=== PATIENT | female | born 1985 | race Caucasian/White ===

== ENCOUNTER 2017-02-15 21:19 | Emergency (ER) | payer BC ==
[~2017-02-15] VITALS: Ht 175.3 cm; Wt 118.2 kg
[~2017-02-15 21:19] MED LIST: ALEVE220 MG PO; CARAFATE PO; CEPHALEXIN500 M1 PO; FLOMAX 0.40.4 MG/CAP PO; KETOROLAC TROME10 MG PO; NORCO 325 MG-51 TAB PO; ONDANSETRON HYDR4 M1 PO; OXYCODONE HCL E10 MG PO; OXYCODONE HCL10 M1 PO; PERCOCET 325 MG1 TA2 PO; PHENERGAN 25 TA25 MG PO; PRILOSEC 20MG20 MG PO; SILVADENE(20 GM/1 TU TP; SULFAMETH/TRIME1 TA2 PO; ZANAFLEX CAPSULE2 MG PO; ZOFRAN ODT8 M1 PO
[2017-02-15 23:19] VITALS: BP 124/86
== END 2017-02-15 23:19 | disposition home or self-care (01) ==
LOC: ED 21:19
DX: O20.9 Hemorrhage in early pregnancy, unspecified (principal); Z3A.01 Less than 8 weeks gestation of pregnancy; Z79.891 Long term (current) use of opiate analgesic

== ENCOUNTER 2018-07-28 11:05 | Emergency (ER) | payer MEDICAID ==
[~2018-07-28] VITALS: Ht 172.7 cm; Wt 118.2 kg
[2018-07-28] MEDS ORDERED: JUNEL FE 1/20 21 TAB PO (11:14)
[2018-07-28] MEDS ORDERED: ESCITALOPRAM10 MG PO (11:14)
[2018-07-28] MEDS ORDERED: OXYCODONE HCL20 M1 PO (11:14)
[2018-07-28 12:51] VITALS: BP 152/97
== END 2018-07-28 12:47 | disposition home or self-care (01) ==
LOC: ED 11:05
DX: M79.672 Pain in left foot (principal); Z79.899 Other long term (current) drug therapy; Z79.891 Long term (current) use of opiate analgesic; M54.9 Dorsalgia, unspecified; G89.29 Other chronic pain; Z87.891 Personal history of nicotine dependence

== ENCOUNTER 2018-09-11 11:55 | Emergency (ER) | payer MEDICAID ==
[~2018-09-11] VITALS: Ht 172.7 cm; Wt 118.2 kg
[~2018-09-11 11:55] MED LIST changes: +ESCITALOPRAM10 MG PO; +JUNEL FE 1/20 21 TAB PO; +OXYCODONE HCL20 M1 PO
[2018-09-11] MEDS ORDERED: JUNEL FE 1/20 21 TAB PO (12:27)
[2018-09-11 13:34] VITALS: BP 142/85
== END 2018-09-11 13:39 | disposition home or self-care (01) ==
LOC: ED 11:55
DX: S00.03XA Contusion of scalp, initial encounter (principal); G89.29 Other chronic pain; M54.5 Low back pain; Z87.442 Personal history of urinary calculi; Z98.890 Other specified postprocedural states; Y04.2XXA Assault by strike against or bumped into by another person, initial encounter; Y92.9 Unspecified place or not applicable
CPT/HCPCS: J1885; J2060

== ENCOUNTER → 2018-12-16 | Outpatient (CLI) | payer MEDICAID ==
[2018-12-15 02:35] VITALS: BP 145/85
[2018-12-16 13:00] LABS: URINE APPEARANCE HAZY; URINE COLOR YELLOW
[2018-12-16 13:01] LABS: PH-URINE 5.5 (5.0 - 8.0); URINE BILIRUBIN NEGATIVE (NEGATIVE); URINE BLOOD NEGATIVE (NEGATIVE); URINE GLUCOSE NEGATIVE (NEGATIVE); URINE KETONE NEGATIVE (NEGATIVE); URINE LEUKOCYTE ESTERASE TRACE (NEGATIVE); URINE NITRATE NEGATIVE (NEGATIVE); URINE PROTEIN(semi-quant) NEGATIVE (NEGATIVE); URINE UROBILINOGEN NORMAL (NORMAL)
== END ==
LOC: RAD 10:49 → LAB 10:49
PROVIDERS: Urology
DX: N20.0 Calculus of kidney (principal)

== ENCOUNTER 2019-03-03 21:31 | Emergency (ER) | payer MEDICAID ==
[2019-03-03] MEDS ORDERED: SPRINTEC 35 MCG1 TAB PO (21:45)
[2019-03-03] MEDS ORDERED: NEURONTIN300 MG/CAP PO (21:46)
[2019-03-03] MEDS ORDERED: METHOCARBAMOL500 M1 PO (21:46)
[2019-03-03 22:31] LABS: BASO # 0.1 (0.02-0.10); EOS # 0.5 (0.04-0.40); EOS % 6.2 % (1.0-5.0); HEMATOCRIT 37.9 % (37.0-47.0); HEMOGLOBIN 12.3 g/dL (12.5-16.0); LYMPH# 1.9 (1.50-4.00); MEAN CELL VOLUME 79 fl (78-100); MEAN CORPUSCULAR HEMOGLOBIN 26 pg (27-31); MEAN CORPUSCULAR HGB CONC 33 g/dL (33-37); MEAN PLATELET VOLUME 9.3 fl (7.4-10.4); MONO # 0.7 (0.20-0.80); NEU # 5.5 (1.40-6.50); PLATELET COUNT 325 K/mm3 (130-400); RED BLOOD COUNT 4.78 M/mm3 (4.10-5.30); RED CELL DISTRIBUTION WIDTH 13.6 % (11.5-14.5); WHITE BLOOD COUNT 8.7 K/mm3 (4.8-10.8)
[2019-03-03 22:39] LABS: ALBUMIN 3.8 g/dL (3.5-5.0)
[2019-03-03 22:40] LABS: POTASSIUM 4.3 mmol/L (3.5-5.1)
[2019-03-03 22:41] LABS: CALCIUM 9.1 mg/dL (8.3-10.5)
[2019-03-03 22:42] LABS: TOTAL PROTEIN 7.2 g/dL (6.4-8.3)
[2019-03-03 22:42] LABS: URINE APPEARANCE CLOUDY; URINE COLOR YELLOW
[2019-03-03 22:43] LABS: URINE BILIRUBIN NEGATIVE (NEGATIVE); URINE BLOOD 50 ery/uL (NEGATIVE); URINE GLUCOSE NEGATIVE (NEGATIVE); URINE KETONE NEGATIVE (NEGATIVE); URINE LEUKOCYTE ESTERASE 2+ (NEGATIVE); URINE MUCUS PRESENT (NOT PRESENT); URINE NITRATE POSITIVE (NEGATIVE); URINE PROTEIN(semi-quant) 1+ mg/dL (NEGATIVE); URINE UROBILINOGEN NORMAL (NORMAL); URINE WBC >50 /hpf (0-3)
[2019-03-03 22:44] LABS: TOTAL BILIRUBIN 0.5 mg/dL (0.2-1.2)
[2019-03-04] MEDS ORDERED: CIPRO500 M1 PO (01:33)
[2019-03-04 01:48] VITALS: BP 133/83
== END 2019-03-04 01:48 | disposition home or self-care (01) ==
LOC: ED 21:31
PROVIDERS: Nurse Practitioner Family
DX: N12 Tubulo-interstitial nephritis, not specified as acute or chronic (principal); F41.9 Anxiety disorder, unspecified; Z87.442 Personal history of urinary calculi
CPT/HCPCS: J0744; J1885; J2405; J7030

== ENCOUNTER 2019-05-31 13:10 | Emergency (ER) | payer MEDICAID ==
[~2019-05-31] VITALS: Ht 175.3 cm; Wt 118.2 kg
[~2019-05-31 13:10] MED LIST changes: +CIPRO500 M1 PO; +METHOCARBAMOL500 M1 PO; +NEURONTIN300 MG/CAP PO; +SPRINTEC 35 MCG1 TAB PO
[2019-05-31] MEDS ORDERED: SPRINTEC 35 MCG1 TAB PO (13:30)
[2019-05-31 14:57] VITALS: BP 147/86
== END 2019-05-31 14:57 | disposition home or self-care (01) ==
LOC: ED 13:10
DX: S60.221A Contusion of right hand, initial encounter (principal); W22.8XXA Striking against or struck by other objects, initial encounter; Y92.410 Unspecified street and highway as the place of occurrence of the external cause

== ENCOUNTER → 2020-06-04 | Outpatient (CLI) | payer MEDICAID ==
[2020-06-04 16:38] LABS: HEMATOCRIT 40.4 % (37.0-47.0); HEMOGLOBIN 12.7 g/dL (12.5-16.0); MEAN CELL VOLUME 77 fl (78-100); MEAN CORPUSCULAR HGB CONC 31 g/dL (33-37); MEAN PLATELET VOLUME 9.2 fl (7.4-10.4); PLATELET COUNT 455 K/mm3 (130-400); RED BLOOD COUNT 5.27 M/mm3 (4.10-5.30); RED CELL DISTRIBUTION WIDTH 14.3 % (11.5-14.5)
[2020-06-04 16:39] LABS: MEAN CORPUSCULAR HEMOGLOBIN 24 pg (27-31)
[2020-06-04 16:45] LABS: LYMPHOCYTE 20 % (20-51); MONOCYTE 5 % (3-10); NEUTROPHILS 60 % (42-75)
[2020-06-04 16:46] LABS: MICROCYTOSIS 1+
== END ==
LOC: LAB 16:14
PROVIDERS: Family Medicine
DX: R05 Cough (principal); R06.2 Wheezing

== ENCOUNTER 2020-07-06 12:57 | Emergency (ER) | payer MEDICAID ==
[~2020-07-06] VITALS: Ht 172.7 cm; Wt 127.4 kg
[2020-07-06] MEDS ORDERED: FEXOFENADINE H180 M1 PO (13:05)
[2020-07-06] MEDS ORDERED: ESTARYLLA 35 MC1 TAB PO (13:05)
[2020-07-06] MEDS ORDERED: FLOVENT DI250 MCG/Ac IH (13:06)
[2020-07-06] MEDS ORDERED: DILAUDID2 M1 PO (14:58)
[2020-07-06 15:13] VITALS: BP 122/76
== END 2020-07-06 15:13 | disposition home or self-care (01) ==
LOC: ED 12:57
DX: S82.401A Unspecified fracture of shaft of right fibula, initial encounter for closed fracture (principal); J45.909 Unspecified asthma, uncomplicated; Z88.1 Allergy status to other antibiotic agents; Z88.5 Allergy status to narcotic agent; Z88.6 Allergy status to analgesic agent; Z79.891 Long term (current) use of opiate analgesic; Z79.51 Long term (current) use of inhaled steroids; W10.8XXA Fall (on) (from) other stairs and steps, initial encounter; Y93.01 Activity, walking, marching and hiking; Y92.009 Unspecified place in unspecified non-institutional (private) residence as the place of occurrence of the external cause

== ENCOUNTER 2021-04-12 22:39 | Emergency (ER) | payer MEDICAID ==
[~2021-04-12] VITALS: Ht 172.7 cm; Wt 135.4 kg
[~2021-04-12 22:39] MED LIST changes: +DILAUDID2 M1 PO; +ESTARYLLA 35 MC1 TAB PO; +FEXOFENADINE H180 M1 PO; +FLOVENT DI250 MCG/Ac IH
[2021-04-12] MEDS ORDERED: [UNRECOGNIZED DRUG - OTHER] VG (23:01)
[2021-04-12] MEDS ORDERED: PROVENTIL0.09 MG/A1 IH (23:04)
[2021-04-12] MEDS ORDERED: METHADONE HYDROC5 MG (23:07)
[2021-04-12 23:30] LABS: BASO # 0.01 (0.02-0.10); HEMATOCRIT 38.8 % (37.0-47.0); LYMPH# 0.91 (1.50-4.00); MEAN CELL VOLUME 76 fl (78-100); MEAN CORPUSCULAR HEMOGLOBIN 23 pg (27-31); MEAN CORPUSCULAR HGB CONC 31 g/dL (33-37); MEAN PLATELET VOLUME 9.3 fl (7.4-10.4); MONO # 0.14 (0.20-0.80); NEU # 3.02 (1.40-6.50); PLATELET COUNT 292 K/mm3 (130-400); RED BLOOD COUNT 5.14 M/mm3 (4.10-5.30); RED CELL DISTRIBUTION WIDTH 13.9 % (11.5-14.5); WHITE BLOOD COUNT 4.1 K/mm3 (4.8-10.8)
[2021-04-12 23:39] LABS: ALBUMIN 3.5 g/dL (3.5-5.0); POTASSIUM 3.2 mmol/L (3.5-5.1)
[2021-04-12 23:41] LABS: CALCIUM 9.1 mg/dL (8.3-10.5)
[2021-04-12 23:44] LABS: TOTAL BILIRUBIN 0.4 mg/dL (0.2-1.2)
[2021-04-13 17:27] VITALS: BP 155/102
== END 2021-04-13 17:29 | disposition short-term general hospital (02) ==
LOC: ED 22:39
PROVIDERS: Family Medicine
DX: U07.1 COVID-19 (principal); J12.82 Pneumonia due to coronavirus disease 2019; R09.02 Hypoxemia; F11.23 Opioid dependence with withdrawal; J45.909 Unspecified asthma, uncomplicated; Z79.899 Other long term (current) drug therapy
CPT/HCPCS: J1100; J1650; J1885; J2405; J3480

== ENCOUNTER 2022-02-04 13:53 | Emergency (ER) | payer MEDICAID ==
[~2022-02-04] VITALS: Ht 172.7 cm; Wt 151.5 kg
[~2022-02-04 13:53] MED LIST changes: +METHADONE HYDROC5 MG; +PROVENTIL0.09 MG/A1 IH; +[UNRECOGNIZED DRUG - OTHER] VG
[2022-02-04 14:28] LABS: BASO # 0.01 K/mm3 (0.02-0.10); HEMATOCRIT 38.1 % (37.0-47.0); HEMOGLOBIN 11.7 g/dL (12.5-16.0); LYMPH# 1.05 K/mm3 (1.50-4.00); MEAN CELL VOLUME 68 fl (78-100); MEAN CORPUSCULAR HEMOGLOBIN 21 pg (27-31); MEAN CORPUSCULAR HGB CONC 31 g/dL (33-37); MEAN PLATELET VOLUME 8.8 fl (7.4-10.4); MONO # 0.48 K/mm3 (0.20-0.80); PLATELET COUNT 382 K/mm3 (130-400); RED BLOOD COUNT 5.64 M/mm3 (4.10-5.30); RED CELL DISTRIBUTION WIDTH 16.9 % (11.5-14.5); WHITE BLOOD COUNT 11.9 K/mm3 (4.8-10.8)
[2022-02-04 15:00] LABS: POTASSIUM 3.9 mmol/L (3.5-5.1); SODIUM 138 mmol/L (136-145)
[2022-02-04 15:01] LABS: CALCIUM 9.6 mg/dL (8.3-10.5)
[2022-02-04 15:02] LABS: GLUCOSE 101 mg/dL (65-105); TOTAL PROTEIN 7.2 g/dL (6.4-8.3)
[2022-02-04 15:03] LABS: CARBON DIOXIDE 20 mmol/L (22-29)
[2022-02-04 15:04] LABS: TOTAL BILIRUBIN 0.9 mg/dL (0.2-1.2)
[2022-02-04 15:07] LABS: AST-SGOT 17 U/L (5-34)
[2022-02-04 15:08] LABS: ALT/SGPT 15 U/L (0-55); D-DIMER 0.57 mg/L FEU (0.15-0.50)
[2022-02-04 15:09] LABS: LIPASE 4 U/L (8-78)
[2022-02-04 15:15] LABS: TROPONIN-I < 0.030 ng/mL (<0.030)
[2022-02-04 15:47] LABS: URINE APPEARANCE HAZY; URINE BILIRUBIN NEGATIVE (NEGATIVE); URINE BLOOD TRACE (NEGATIVE); URINE COLOR YELLOW; URINE GLUCOSE NEGATIVE (NEGATIVE); URINE KETONE NEGATIVE (NEGATIVE); URINE LEUKOCYTE ESTERASE TRACE (NEGATIVE); URINE NITRATE NEGATIVE (NEGATIVE); URINE PROTEIN(semi-quant) NEGATIVE (NEGATIVE); URINE UROBILINOGEN NORMAL (NORMAL)
[2022-02-04 15:48] LABS: URINE WBC 0-1 /hpf (0-3)
[2022-02-04] MEDS ORDERED: AMOXICILLIN AND1 TA2 PO (16:07)
[2022-02-04] MEDS ORDERED: CYCLOBENZAPRINE10 M1 PO (16:07)
[2022-02-04] MEDS ORDERED: CIPRODEX 0.3%-7.5 ML OT (16:07)
[2022-02-04] MEDS ORDERED: LIDOCAINE TP (16:07)
[2022-02-04 16:11] VITALS: BP 146/96
== END 2022-02-04 16:15 | disposition home or self-care (01) ==
LOC: ED 13:53
PROVIDERS: Physician Assistant
DX: H66.92 Otitis media, unspecified, left ear (principal); H60.332 Swimmer's ear, left ear; M54.50 Low back pain, unspecified; R07.89 Other chest pain; K02.9 Dental caries, unspecified; R79.1 Abnormal coagulation profile; R74.8 Abnormal levels of other serum enzymes; Z20.822 Contact with and (suspected) exposure to COVID-19; Z28.311 Partially vaccinated for COVID-19; Z86.16 Personal history of COVID-19
CPT/HCPCS: J1885; J2360; J3360; J7030; Q9967

== ENCOUNTER 2024-03-26 09:18 | Emergency (ER) | payer MEDICAID ==
[~2024-03-26] VITALS: Wt 162.5 kg
[~2024-03-26 09:18] MED LIST changes: +AMOXICILLIN AND1 TA2 PO; +CIPRODEX 0.3%-7.5 ML OT; +CYCLOBENZAPRINE10 M1 PO; +LIDOCAINE TP; -METHADONE HYDROC5 MG; +METHADONE HYDROC5 MG PO; +ORPHENADRINE C100 MG PO
[2024-03-26] MEDS ORDERED: PRILOSEC 20MG20 MG PO (09:32)
[2024-03-26 09:55] LABS: BASO # 0.01 K/mm3 (0.02-0.10); EOS # 0.03 K/mm3 (0.04-0.40); EOS % 0.5 % (1.0-5.0); HEMATOCRIT 35.5 % (37.0-47.0); HEMOGLOBIN 10.3 g/dL (12.5-16.0); LYMPH# 1.14 K/mm3 (1.50-4.00); MEAN CELL VOLUME 73 fl (78-100); MEAN CORPUSCULAR HEMOGLOBIN 21 pg (27-31); MEAN CORPUSCULAR HGB CONC 29 g/dL (33-37); MEAN PLATELET VOLUME 8.1 fl (7.4-10.4); MONO # 0.26 K/mm3 (0.20-0.80); NEU # 4.63 K/mm3 (1.40-6.50); PLATELET COUNT 332 K/mm3 (130-400); RED BLOOD COUNT 4.88 M/mm3 (4.10-5.30); RED CELL DISTRIBUTION WIDTH 15.3 % (11.5-14.5); WHITE BLOOD COUNT 6.1 K/mm3 (4.8-10.8)
[2024-03-26 10:04] LABS: CALCIUM 9.9 mg/dL (8.3-10.5)
[2024-03-26 10:05] LABS: TOTAL PROTEIN 6.8 g/dL (6.4-8.3)
[2024-03-26 10:07] LABS: TOTAL BILIRUBIN 0.4 mg/dL (0.2-1.2)
[2024-03-26] MEDS ORDERED: Pantoprazole 40 MG in NS 10 ML IV ONE (10:30)
[2024-03-26] MEDS ORDERED: Ketorolac 30 MG/ML VIAL IV ONE (10:30)
[2024-03-26] MEDS ORDERED: NS 1,000 ML IV SCH (10:30)
[2024-03-26 11:30] LABS: PH-URINE 7.5 (5.0 - 8.0); URINE APPEARANCE SLIGHTLY CLOUDY (CLEAR); URINE BILIRUBIN NEGATIVE (NEGATIVE); URINE BLOOD NEGATIVE (NEGATIVE); URINE COLOR YELLOW (YELLOW); URINE GLUCOSE NEGATIVE (NEGATIVE); URINE KETONE NEGATIVE (NEGATIVE); URINE LEUKOCYTE ESTERASE TRACE (NEGATIVE); URINE NITRATE NEGATIVE (NEGATIVE); URINE PROTEIN(semi-quant) NEGATIVE (NEGATIVE)
[2024-03-26] MEDS ORDERED: Iohexol 300 - 100 ML VIAL IV ONE (12:56)
[2024-03-26] MEDS ORDERED: ZOFRAN ODT4 MG PO (14:11)
[2024-03-26 14:24] VITALS: BP 174/93
== END 2024-03-26 14:25 | disposition home or self-care (01) ==
LOC: ED 09:18
PROVIDERS: Family Medicine
DX: R10.13 Epigastric pain (principal); R11.0 Nausea
CPT/HCPCS: J1885; J2470; J7030; Q9967

== ENCOUNTER 2024-03-30 16:57 | Emergency (ER) | payer MEDICAID ==
[~2024-03-30] VITALS: Ht 172.7 cm; Wt 162.1 kg
[~2024-03-30 16:57] MED LIST changes: +ZOFRAN ODT4 MG PO
[2024-03-30] MEDS ORDERED: Ondansetron 4 MG/2 ML VIAL IV ONE (17:15)
[2024-03-30] MEDS ORDERED: Ketorolac 30 MG/ML VIAL IV ONE (17:15)
[2024-03-30] MEDS ORDERED: NS 1,000 ML IV ONE (17:15)
[2024-03-30 17:19] LABS: BASO # 0.02 K/mm3 (0.02-0.10); EOS # 0.08 K/mm3 (0.04-0.40); EOS % 1.2 % (1.0-5.0); HEMATOCRIT 34.3 % (37.0-47.0); HEMOGLOBIN 10.1 g/dL (12.5-16.0); LYMPH# 1.78 K/mm3 (1.50-4.00); MEAN CELL VOLUME 72 fl (78-100); MEAN CORPUSCULAR HEMOGLOBIN 21 pg (27-31); MEAN CORPUSCULAR HGB CONC 29 g/dL (33-37); MEAN PLATELET VOLUME 8.4 fl (7.4-10.4); MONO # 0.39 K/mm3 (0.20-0.80); NEU # 4.46 K/mm3 (1.40-6.50); PLATELET COUNT 291 K/mm3 (130-400); RED BLOOD COUNT 4.76 M/mm3 (4.10-5.30); RED CELL DISTRIBUTION WIDTH 15.5 % (11.5-14.5); WHITE BLOOD COUNT 6.7 K/mm3 (4.8-10.8)
[2024-03-30 17:25] LABS: CALCIUM 9.4 mg/dL (8.3-10.5)
[2024-03-30 17:26] LABS: TOTAL PROTEIN 6.8 g/dL (6.4-8.3)
[2024-03-30 17:28] LABS: TOTAL BILIRUBIN 0.4 mg/dL (0.2-1.2)
[2024-03-30] MEDS ORDERED: Iohexol 300 - 100 ML VIAL IV ONE (17:48)
[2024-03-30] MEDS ORDERED: NS 1,000 ML IV SCH (19:15)
[2024-03-30] MEDS ORDERED: traMADol 50 MG TAB PO ONE (19:15)
[2024-03-30 20:26] VITALS: BP 145/100
== END 2024-03-30 20:22 | disposition short-term general hospital (02) ==
LOC: ED 16:57
PROVIDERS: Family Medicine
DX: K37 Unspecified appendicitis (principal)
CPT/HCPCS: J1885; J2405; J7030; Q9967

== ENCOUNTER → 2024-06-06 | Outpatient (CLI) | payer MEDICAID ==
[2024-06-06 13:09] LABS: BASO # 0.01 K/mm3 (0.02-0.10); EOS # 0.05 K/mm3 (0.04-0.40); EOS % 0.9 % (1.0-5.0); HEMATOCRIT 30.7 % (37.0-47.0); HEMOGLOBIN 9.1 g/dL (12.5-16.0); LYMPH# 1.54 K/mm3 (1.50-4.00); MEAN CELL VOLUME 73 fl (78-100); MEAN CORPUSCULAR HEMOGLOBIN 22 pg (27-31); MEAN CORPUSCULAR HGB CONC 30 g/dL (33-37); MEAN PLATELET VOLUME 8.3 fl (7.4-10.4); MONO # 0.22 K/mm3 (0.20-0.80); NEU # 3.59 K/mm3 (1.40-6.50); PLATELET COUNT 290 K/mm3 (130-400); RED BLOOD COUNT 4.22 M/mm3 (4.10-5.30); RED CELL DISTRIBUTION WIDTH 15.4 % (11.5-14.5); WHITE BLOOD COUNT 5.4 K/mm3 (4.8-10.8)
[2024-06-06 13:16] LABS: ALBUMIN 3.6 g/dL (3.5-5.0)
[2024-06-06 13:17] LABS: CALCIUM 9.3 mg/dL (8.3-10.5)
[2024-06-06 13:18] LABS: TOTAL PROTEIN 6.2 g/dL (6.4-8.3)
[2024-06-06 13:20] LABS: TOTAL BILIRUBIN 0.4 mg/dL (0.2-1.2)
[2024-06-07 00:33] LABS: INSULIN 38 uIU/mL (2-23)
== END ==
LOC: LAB 12:49
PROVIDERS: Physician Assistant
DX: I10 Essential (primary) hypertension (principal); M79.89 Other specified soft tissue disorders; Z68.43 Body mass index [BMI] 50.0-59.9, adult

== ENCOUNTER 2024-11-12 02:15 | Emergency (ER) | payer MEDICAID ==
[~2024-11-12] VITALS: Wt 151.7 kg
[2024-11-12 02:24] VITALS: BP 192/107
[2024-11-12] MEDS ORDERED: ZEPBOUND2.5 MG/0.5 SQ (02:45)
[2024-11-12] MEDS ORDERED: D3-501250 MCG PO (02:45)
[2024-11-12] MEDS ORDERED: NATURAL IRON65 MG PO (02:47)
[2024-11-12] MEDS ORDERED: METHADONE HYDRO10 MG PO (02:47)
[2024-11-12] MEDS ORDERED: NS 500 ML IV SCH (03:15)
[2024-11-12] MEDS ORDERED: Ondansetron 4 MG/2 ML VIAL IV ONE ×2 (03:15→05:45)
[2024-11-12 03:34] LABS: BASO # 0.01 K/mm3 (0.02-0.10); EOS # 0.02 K/mm3 (0.04-0.40); EOS % 0.3 % (1.0-5.0); HEMATOCRIT 39.4 % (37.0-47.0); HEMOGLOBIN 12.3 g/dL (12.5-16.0); LYMPH# 0.99 K/mm3 (1.50-4.00); MEAN CELL VOLUME 72 fl (78-100); MEAN CORPUSCULAR HEMOGLOBIN 22 pg (27-31); MEAN CORPUSCULAR HGB CONC 31 g/dL (33-37); MEAN PLATELET VOLUME 8.7 fl (7.4-10.4); MONO # 0.14 K/mm3 (0.20-0.80); NEU # 5.52 K/mm3 (1.40-6.50); PLATELET COUNT 342 K/mm3 (130-400); RED BLOOD COUNT 5.49 M/mm3 (4.10-5.30); RED CELL DISTRIBUTION WIDTH 16.6 % (11.5-14.5); WHITE BLOOD COUNT 6.7 K/mm3 (4.8-10.8)
[2024-11-12 03:38] LABS: ALBUMIN 4.2 g/dL (3.5-5.0); SODIUM 139 mmol/L (136-145)
[2024-11-12 03:39] LABS: CALCIUM 9.6 mg/dL (8.3-10.5)
[2024-11-12 03:40] LABS: GLUCOSE 129 mg/dL (65-105)
[2024-11-12 03:41] LABS: CARBON DIOXIDE 21 mmol/L (22-29); TOTAL PROTEIN 7.4 g/dL (6.4-8.3)
[2024-11-12 03:42] LABS: TOTAL BILIRUBIN 0.5 mg/dL (0.2-1.2)
[2024-11-12 03:46] LABS: AST-SGOT 21 U/L (5-34)
[2024-11-12 03:47] LABS: ALT/SGPT 26 U/L (0-55)
[2024-11-12 03:48] LABS: LIPASE < 4 U/L (8-78)
[2024-11-12] MEDS ORDERED: NS 100 ML IV SCH (04:23)
[2024-11-12] MEDS ORDERED: Iohexol 300 - 100 ML VIAL IV ONE (04:24)
[2024-11-12] MEDS ORDERED: ONDANSETRON HYDR4 MG PO (05:12)
== END 2024-11-12 05:55 | disposition home or self-care (01) ==
LOC: ED 02:15
PROVIDERS: Registered Nurse
DX: R11.2 Nausea with vomiting, unspecified (principal); R19.7 Diarrhea, unspecified; R10.811 Right upper quadrant abdominal tenderness; R10.819 Abdominal tenderness, unspecified site
CPT/HCPCS: J0780; J2405; J7040; Q9967